=== PATIENT | female | born 2000 | race Two or more races ===

== ENCOUNTER 2022-12-17 13:42 | Emergency (ER) | payer MEDICAID, OTHER ==
[~2022-12-17] VITALS: Ht 160 cm; Wt 81.1 kg
[2022-12-17] MEDS ORDERED: IBUP800T27 PO (15:46)
[2022-12-17 15:52] VITALS: BP 138/63
== END 2022-12-17 15:56 | disposition home or self-care (01) ==
LOC: ER 13:42
DX: S63.92XA Sprain of unspecified part of left wrist and hand, initial encounter (principal); X58.XXXA Exposure to other specified factors, initial encounter; Y93.89 Activity, other specified; Y92.89 Other specified places as the place of occurrence of the external cause; Y99.8 Other external cause status
CPT/HCPCS: 73130